=== PATIENT | female | born 1990 | race Caucasian/White ===

== ENCOUNTER → 2020-09-06 | Outpatient (REF) | payer BC | LOC: M SFHCWAGY 12:51 | PROVIDERS: ATTEND Advanced Practice Midwife | DX: Z34.03 Encounter for supervision of normal first pregnancy, third trimester (principal); Z3A.00 Weeks of gestation of pregnancy not specified ==

== ENCOUNTER 2020-09-30 01:47 | Inpatient (IN) | payer BC, SELFPAY ==
[2020-09-30] VITALS (43 sets, daily range): BP systolic 99–140; BP diastolic 54–86
[~2020-09-30] VITALS: Ht 167.6 cm; Wt 72.0 kg
[2020-09-30] MEDS ORDERED: PREN29CH2 PO (02:30)
[2020-09-30 03:39] LABS: HEMATOCRIT 39.2 % (36.0-47.0); HEMOGLOBIN 13.1 g/dl (12.0-15.5); MEAN CORPUSCULAR HGB CONC 33.4 g/dl (32.0-36.5); MEAN CORPUSCULAR VOLUME 95.6 fl (80.0-96.0); PLATELET COUNT, AUTOMATED 279 10^3/uL (150-450); WHITE BLOOD COUNT 17.5 10^3/uL (4.0-10.0)
[2020-09-30] MEDS ORDERED: PENICILLIN G POTASSIUM IV 5 MU in D5W MINI-BAG PLUS 100 ML IV STA (03:48)
[2020-09-30] MEDS ORDERED: FENTANYL 2MCG/ML ROPIVACAINE 0.2% IN 0.9% NACL 100ML IVBAG As Ordered ONE (04:40)
--- NOTE | 2020-09-30 04:48 | HPEPDOC ---
Obstetrical History & Physical General Date of Admission Sep 30, 2020 at 02:39 History of Present Illness 30yo at 40w5d with ctx. Transfer of care at 37 wks, otherwise, unremarkable course. Chief Complaint: Contractions, term Information Provided By: Patient Age: 30 : 2 Care Care: Good Care Dating Final EDC: September 19, 2020 Final EDC by: LMP EGA at Admission: 40 Past Medical History Past Obstetrical History : Past Obstetrical History: Primgravida Past Medical History Surgical History: Other Family History Significant Family History: No pertinent family hx Social History Marital Status: Family situation: Spouse/partner home Psychosocial History: No pertinent psych hx * Smoker: non-smoker Alcohol: Denies Drugs: denies Allergies Coded Allergies: cefprozil (Verified Allergy, Unknown, 09/30/20) Medications Scheduled No115/Iron/Folic Acid ( 19 Chewable Tablet) 1 Each Tab.chew, 1 TAB PO DAILY Physical Examination Physical Examination GENERAL: Alert and oriented times three. BREAST: . ABDOMEN: Gravid and non-tender to touch. FETUS: Is vertex (VTX) by sterile vaginal examination (SVE), fetus is vertex (VTX) by Omar. HEART RATE: Regular rate and rhythm. LUNGS: Clear to auscultation (CTA). Vital Signs/I&O Vital Signs Date Time Temp Pulse Resp B/P (MAP) Pulse Ox O2 Delivery O2 Flow Rate FiO2 09/30/20 03:42 67 16 132/83 (99) 09/30/20 02:12 97.9 98 Room Air Laboratory Data 24H LABS Laboratory Tests 2 09/30/20 03:27: Nucleated Red Blood Cells % (auto) 0.0 09/30/20 04:00: CBC/BMP Laboratory Tests 09/30/20 03:27 Pertinent Laboratoy Data Blood Type: A+ RBC Antibody Screen: Negative Hepatitis B: Negative Hepatitis C: Negative Rapid Plasma Reagin: Nonreactive Rubella: Immune Group B Streptococcus: Positive Glucose Tolerance Test: 96 Vaginal Examination Dilation: 3 cm Effacement: 90% Station: -2 Cervical Consistency: Medium Cervical Position: Middle Presentation: Cephalic presentation Assessment Variability: Moderate Tocometer Contractions: Yes Frequency: regular Assessment/Plan Assessment 30yo at 40w5d in active labor Reassuring status Plan Admit and orient. Disability Liaison Officer and consent. Group B Streptococcus (GBS) positive. Labs and intravenous (IV) per unit protocol. Counseled on Pitocin and induction of labor (IOL). Anticipate normal spontaneous delivery (). C-S as appropriate. TONI GALINDO MD. Sep 30, 2020 04:48
[2020-09-30] MEDS ORDERED: OXYTOCIN DRIP 30 UNITS in IV 1 EA IV SCH (05:50)
[2020-09-30] MEDS ORDERED: ePHEDrine SULFATE 25 MG/5 ML(5MG/ML) SYRINGE IV PRN (06:10)
[2020-09-30] MEDS ORDERED: ONDANSETRON 4MG/2ML VIAL IV PRN ×2 (06:10→18:10)
[2020-09-30] MEDS ORDERED: diphenhydrAMINE 50MG/ML VIAL (J1200) IV PRN (06:10)
[2020-09-30] MEDS ORDERED: NALOXONE INJ 0.4MG/1ML VIAL (J2310 PER 1MG) IV PRN (06:10)
[2020-09-30] MEDS ORDERED: EPIDURAL COMMENT XX SCH (06:10)
[2020-09-30] MEDS ORDERED: EPIDURAL/PCA KEYS XX PRN (06:10)
[2020-09-30] MEDS ORDERED: LACTATED RINGER'S 1000 ML IV PRN (06:10)
[2020-09-30] MEDS ORDERED: REFRIGERATOR IV KEYS XX PRN (06:10)
[2020-09-30] MEDS: FENTANYL/ROPIVACAINE/NACL BAG 100 ML EPIDURAL SCH ×2 (06:32→14:20)
[2020-09-30] MEDS: LR 1,000 ML IV SCH ×2 (06:33→11:15)
[2020-09-30] MEDS: PENICILLIN G POTASSIUM IV 2.5 MU in IV 1 EA IV SCH ×3 (07:51→15:57)
--- NOTE | 2020-09-30 12:35 | IPNPDOC ---
Obstetrical Progress Note Date of Service Sep 30, 2020 Subjective Patient reports she is comfortable with her epidural. Objective Vital Signs Date Time Temp Pulse Resp B/P (MAP) Pulse Ox O2 Delivery O2 Flow Rate FiO2 09/30/20 09:36 67 102/60 (74) 09/30/20 07:58 97.7 16 09/30/20 05:31 98 Room Air Assessment Heart Rate (FHR): 140 Variability: Moderate Accelerations: Positive Decelerations: None Heart Rate Tracing: Category I Tocometer Contractions: Yes Frequency: regular Sterile Vaginal Examination Dilation: 5 cm Effacement (%): 100% Station: -1 Postion/Presentation: Cephalic presentation Assessment and Plan Age: 30 : 1 Term: 0 Pre-term: 0 Abortions: 0 Livin EGA at Admission: 40.5 Status: Reassuring Group B Streptococcus: Positive Anticipate: Vaginal Delivery Additional Comments AROM to a moderate amount of clear fluid. IV Pitocin is at 5 mu/min. DEQUAN RODAS CNM Sep 30, 2020 12:35
[2020-09-30] MEDS ORDERED: METHYLERGONOVINE MALEATE 0.2 MG/ML VIAL (J2210) IM ONE (18:00)
--- NOTE | 2020-09-30 18:08 | DNPDOC ---
[facility] Delivery Note Delivery Note DATE OF DELIVERY: 09/30/20 PREDELIVERY DIAGNOSIS: 40-5/7 weeks' gestation and labor. POST DELIVERY DIAGNOSIS: Delivered. PROCEDURE: Spontaneous vaginal delivery. PUMP ERECTOR HELPER: Dequan Tipton CNM, GAVINO ANESTHESIA: epidural. ESTIMATED BLOOD LOSS: 600 mL. FINDINGS: 8 pounds 5 ounces; 3760 grams; male , Score 9/9; hemorrhage related to perineal laceration . DELIVERY SUMMARY: Clementina is a 30-year-old female who is now a who presented in active labor. She requested an epidural for pain management. IV Pitocin was used to augment her labor. She progressed to fully dilated at 1558 and pushed to a living male in the OA position with restitution to ROT. The anterior shoulder delivered with ease and the corpus immediately followed. The baby was placed [id number] active and crying. The cord was clamped after pulsation ceased and cut by the FOB. A 3-vessel cord was noted. The placenta delivered spontaneously and intact at 1650. Uterine hemostasis was achieved via rapid infusion of IV Pitocin, IM methergine, and fundal massage. The vagina, cervix and perineum was inspected and found to have a second degree perineal laceration that was repaired with a 3.[address]-1 and a left labial laceration that extended to the right of her clitoris and a left labial abrasion, both repaired with a 4.0 Vicryl Rapide RB-1. Mom plans to name her son Brandan. Both mom and baby are in stable condition. All counts on sponges or instruments are correct. DEQUAN TIPTON CNM Sep 30, 2020 18:08
[2020-09-30] MEDS ORDERED: RHOGAM 300 MCG (1500 IU) INJ (J2790) IM SCH (18:10)
[2020-09-30] MEDS ORDERED: MEASLES,MUMPS,RUBELLA VACCINE INJ (MMR-II) (90707) SC SCH (18:10)
[2020-09-30] MEDS ORDERED: DOCUSATE SODIUM 100MG CAPSULE PO PRN (18:10)
[2020-09-30] MEDS ORDERED: DIBUCAINE 1% OINTMENT 30GM TOP PRN (18:10)
[2020-09-30] MEDS ORDERED: ACETAMINOPHEN 500 MG TAB PO PRN (18:10)
[2020-09-30] MEDS ORDERED: ANUSOL HC CREAM 30GM TOP PRN (18:10)
[2020-09-30] MEDS ORDERED: ACETAMINOPHEN TAB 650MG DOSE (2X325MG) PO PRN (18:10)
[2020-09-30] MEDS: IBUPROFEN 800 MG TAB PO PRN (18:21)
[2020-10-01] MEDS: IBUPROFEN 800 MG TAB PO PRN (05:39)
[2020-10-01 06:00] VITALS: BP 110/63
--- NOTE | 2020-10-01 07:32 | IPNPDOC ---
Progress Note Date of Service: Oct 01, 2020 Day#: 1 Progress Note SUBJECT: Clementina is a 30-year-old female who is now a who had a vaginal delivery yesterday. She had an uncomplicated . She did have an EBL of 600 related to perineal/labial lacerations. She has been ambulating, voiding spontaneously without issue and tolerating regular diet. Breast feeding without issue. She does have inverted nipples but has been latching well. OBJECTIVE: VITAL SIGNS: Within normal limits, afebrile. Alert and oriented times three. Breath sounds clear to auscultation. Abdomen: Fundus firm at U-2. Soft, NTTP. Perineum: minimal swelling noted. Healing well. No erythema. Minimal to moderate lochia. ASSESSMENT: Day 1 PLAN: 1. Continue supportive nursing care. 2. support. 3. Anticipate discharge to home tomorrow. VS, I&O, 24H, Fishbone Vital Signs/I&O Vital Signs Date Time Temp Pulse Resp B/P (MAP) Pulse Ox O2 Delivery O2 Flow Rate FiO2 10/01/20 06:00 97.1 66 20 110/63 (79) 100 Room Air I&O- Last 24 Hours up to 6 AM 10/01/20 05:59 Intake Total 2114.8 ml Output Total 2300 ml Balance -185.2 ml Laboratory Data 24H LABS Laboratory Tests 2 10/01/20 00:33: Serology Scanned Report Hepatitis B Testing DEQUAN RODAS CNM Oct 01, 2020 07:32
[2020-10-01] MEDS: PRENATAL VITAMINS CHEWABLE TABLET PO SCH (08:41)
[2020-10-01] MEDS: IBUPROFEN 600MG TAB PO PRN (17:35)
[2020-10-01 18:00] VITALS: BP 122/62
[2020-10-02] MEDS: IBUPROFEN 600MG TAB PO PRN (02:03)
--- NOTE | 2020-10-02 05:53 | IPNPDOC ---
Progress Note Date of Service: Oct 02, 2020 Day#: 2 Progress Note SUBJECT: Status post . She has been ambulating, voiding spontaneously without issue and tolerating regular diet. Lochia decreasing/minimal. Pain is well-controlled. Denies headache, visual changes, right upper quadrant pain, shortness breath or chest pain. OBJECTIVE: VITAL SIGNS: Within normal limits, afebrile. Alert and oriented times three. Abdomen: Fundus firm at U-2. Soft, NTTP. ASSESSMENT: Status post uncomplicated spontaneous vaginal delivery. Vitals within normal limits, afebrile, hemodynamically stable with no evidence of infection. PLAN: Discharge to home today. Tylenol and Motrin for pain. Routine instructions/precautions reviewed. Routine PP visit in 6 weeks in clinic. VS, I&O, 24H, Fishbone Vital Signs/I&O Vital Signs Date Time Temp Pulse Resp B/P (MAP) Pulse Ox O2 Delivery O2 Flow Rate FiO2 10/01/20 18:00 98.0 81 16 122/62 (82) 97 Room Air RACHELL BAE DO Oct 02, 2020 05:52
[2020-10-02 06:00] VITALS: BP 108/58
[2020-10-02] MEDS: PRENATAL VITAMINS CHEWABLE TABLET PO SCH (07:55)
== END 2020-10-02 13:38 | disposition home or self-care (01) | DRG 560 ==
LOC: M LDO 01:47 → M LDI 02:39 → M PED 16:41 → M LDI 16:49 → M OBS 20:30
PROVIDERS: ADMIT Obstetrics & Gynecology; ATTEND Obstetrics & Gynecology
PROC: 10E0XZZ Delivery of Products of Conception, External Approach (ICD-10-PCS; principal; 2020-09-30)
PROC: 0KQM0ZZ Repair Perineum Muscle, Open Approach (ICD-10-PCS; 2020-09-30)
PROC: 0HQ9XZZ Repair Perineum Skin, External Approach (ICD-10-PCS; 2020-09-30)
DX: O48.0 Post-term pregnancy (principal); O72.1 Other immediate postpartum hemorrhage; Z37.0 Single live birth; Z3A.40 40 weeks gestation of pregnancy; O99.824 Streptococcus B carrier state complicating childbirth; O70.1 Second degree perineal laceration during delivery; O70.0 First degree perineal laceration during delivery